=== PATIENT | male | born 1950 ===

== ENCOUNTER 2019-01-15 18:43 | Emergency (ER) | payer OTHER ==
--- NOTE | 2019-01-15 19:08 | RAD ---
3 views right hand. HISTORY: Smashed third digit. AP, lateral and oblique views right hand obtained. No evidence of acute fractures, subluxations or bony lesions seen. The third digit is unremarkable. IMPRESSION: Normal 3 views right hand.
[2019-01-15] MEDS ORDERED: Bacitracin Zinc 1 Packet ONE (20:23)
[2019-01-15] MEDS ORDERED: Adacel (T-DAP) 0.5 ML SYRINGE ONE (20:23)
== END 2019-01-15 20:28 | disposition home or self-care (01) ==
LOC: ERS 18:43
DX: S61.212A Laceration without foreign body of right middle finger without damage to nail, initial encounter (principal); Z23 Encounter for immunization; W31.89XA Contact with other specified machinery, initial encounter; Y99.0 Civilian activity done for income or pay
CPT/HCPCS: 12002; 90471; 90715